=== PATIENT | male | born 1995 | race Caucasian/White ===

== ENCOUNTER 2018-07-03 19:58 | Emergency (ER) | payer OTHER ==
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
--- NOTE | 2018-07-03 21:16 | CR ---
Indication: Injury and pain Technique: Pelvis 1 views Comparison: None Findings: Bones: Alignment is normal. No fractures or bone lesions. Joint spaces: Unremarkable. Soft tissues: Unremarkable. Impression: No sign of acute injury. Dictated by Rashaad Alvares MD @ Jul 03 2018 9:14PM Signed by Dr. Rashaad Alvares @ Jul 03 2018 9:15PM
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
[2018-07-03] MEDS ORDERED: Sodium Chloride 0.9% 1,000 ML IV ONE (21:53)
[2018-07-03] MEDS ORDERED: Iopamidol 755 Mg/ML 100 ML Bottle IVPUSH ONE (22:26)
[2018-07-03 22:55] LABS: CHLORIDE,CL 103 mmol/L (98-107); SODIUM,NA 141 mmol/L (136-148)
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
== END 2018-07-03 23:59 | disposition home or self-care (01) ==
LOC: MW.ED 19:58
DX: S22.079A Unspecified fracture of T9-T10 vertebra, initial encounter for closed fracture (principal); S00.83XA Contusion of other part of head, initial encounter; V69.9XXA Occupant (driver) (passenger) of heavy transport vehicle injured in unspecified traffic accident, initial encounter
CPT/HCPCS: 70450; 71046; 71260; 72040; 72128; 72131; 72170; 74177; 80053; 81001; 85025; 96360; 99284; J7040; Q9967; 99283